=== PATIENT | female | born 1930 | race Caucasian/White ===

== ENCOUNTER 2016-09-29 04:39 | Inpatient (IN) | payer OTHER ==
[~2016-09-29] VITALS: Ht 167.6 cm; Wt 59.0 kg
--- NOTE | ~2016-09-29 | EKG ---
[address] [place] [address] ELECTROCARDIOGRAM REPORT Name: EVELYNPAT Room #: 545-P ADM IN .R.#: [id number] Admission: 09/29/16 Attend Phys: Tressa Mendoza MD Discharge: Date of : 28 Report #: [id number] THIS REPORT FOR: //name// [facility] ED Test Date: 2016-09-29 Test Time: 06:40:35 Pat Name: PAT RIVAS Department: Room: [facility] Gender: F Blueprint Tracer: CINDI : 1930 Requested By: Baudilio Arora Order Number: [id number] MD: Robert Ewing Measurements Intervals [place] Rate: 64 P: 50 MO: 163 QRS: 0 QRSD: 88 T: 2 QT: 409 QTc: 422 Interpretive Statements Sinus rhythm No significant abnormality No previous ECG available for comparison Electronically Signed On 09-30-2016 14:58:46 CDT by Robert Ewing [email or web address] <ELECTRONICALLY SIGNED> By: Robert Ewing MD, [facility] 09/30/16 1458 0640 0640 Robert Ewing MD, FACC /EPI
[~2016-09-29 04:39] MED LIST: B12INJ; CALCIUM 500 +1 EAC5; FOLIC ACID1 MG; HYDROCHLOROTHIA25 M2; ICAPS TABLET1 EACH; NORCO 5-325 TA1 EACH PO; TOPROL XL25 MG
[2016-09-29 04:40] VITALS: BP 177/77
[2016-09-29] MEDS ORDERED: ASPIR 8181 MG PO (05:40)
[2016-09-29 06:43] LABS: HEMATOCRIT 35.8 % (37.0-47.0); HEMOGLOBIN 12.1 gm/dL (12.0-15.0); MCH 32.2 pg (26.0-34.0); MCHC 33.8 g/dL (28.0-37.0); MCV 95.2 fL (80.0-100.0); RBC 3.76 mil/uL (4.20-5.00); WBC 10.3 thou/uL (4.0-11.0)
[2016-09-29 06:51] LABS: CALCIUM 9.6 mg/dL (8.5-10.1); CREATININE 0.6 mg/dL (0.6-1.0); POTASSIUM 3.5 mmol/L (3.5-5.1)
[2016-09-29 06:56] LABS: APTT 22.4 Seconds (24.5-32.8); PROTIME 10.4 Seconds (9.3-11.4)
[2016-09-29 07:20] VITALS: BP 166/72
[2016-09-29 08:39] VITALS: BP 143/54
[2016-09-29 16:24] VITALS: BP 159/55
[2016-09-29 22:45] VITALS: BP 160/60
[2016-09-30 06:54] LABS: CALCIUM 9.3 mg/dL (8.5-10.1); CREATININE 0.6 mg/dL (0.6-1.0); POTASSIUM 3.5 mmol/L (3.5-5.1)
[2016-09-30 07:45] VITALS: BP 154/67
[2016-09-30 15:44] VITALS: BP 148/56
[2016-09-30 20:00] VITALS: BP 150/55
[2016-10-01 04:00] VITALS: BP 163/67
[2016-10-01 08:00] VITALS: BP 154/56
[2016-10-01] MEDS ORDERED: DILAUDID 2 MG TA2 MG PO (08:45)
[2016-10-01 15:08] VITALS: BP 154/56
== END 2016-10-01 17:05 | disposition home health service (06) | DRG 544 ==
LOC: ER 04:39 → 5S 05:36 → EROBS 05:36 → 4E 07:41 → 5S 07:52
PROVIDERS: Emergency Medicine; Internal Medicine Endocrinology, Diabetes & Metabolism
DX: M80.021A Age-related osteoporosis with current pathological fracture, right humerus, initial encounter for fracture (principal); I10 Essential (primary) hypertension; S09.90XA Unspecified injury of head, initial encounter; S01.01XA Laceration without foreign body of scalp, initial encounter; W18.39XA Other fall on same level, initial encounter; Z79.899 Other long term (current) drug therapy; Y93.89 Activity, other specified; Y92.89 Other specified places as the place of occurrence of the external cause; Y99.8 Other external cause status
CPT/HCPCS: 10086

== ENCOUNTER → 2017-11-29 | Outpatient (CLI) | payer OTHER ==
[~2017-11-29] MED LIST changes: +ASPIR 8181 MG PO; +DILAUDID 2 MG TA2 MG PO
== END ==
LOC: RAD 14:12
DX: Z12.31 Encounter for screening mammogram for malignant neoplasm of breast (principal); M81.0 Age-related osteoporosis without current pathological fracture; M85.89 Other specified disorders of bone density and structure, multiple sites

== ENCOUNTER 2019-03-23 08:29 | Inpatient (IN) | payer OTHER ==
[2019-03-11 12:37] LABS: URINE BILIRUBIN NEGATIVE (Negative); URINE BLOOD TRACE (Negative); URINE CLARITY CLEAR; URINE COLOR YELLOW; URINE GLUCOSE-RANDOM* NEGATIVE (Negative); URINE KETONES NEGATIVE (Negative); URINE LEUKOCYTES-REFLEX TRACE (Negative); URINE NITRITE-REFLEX NEGATIVE (Negative); URINE PROTEIN (DIPSTICK) NEGATIVE (Negative); URINE SPECIFIC GRAVITY <= 1.005 (1.005-1.035); URINE UROBILINOGEN 0.2 E.U./dl (0.2-1.0)
[2019-03-11 12:38] LABS: HEMATOCRIT 40.4 % (37.0-47.0); HEMOGLOBIN 13.7 gm/dL (12.0-15.0); MCH 32.6 pg (26.0-34.0); MCHC 33.9 g/dL (28.0-37.0); MCV 96.2 fL (80.0-100.0); RBC 4.2 mil/uL (4.20-5.00); RDW 12.5 % (10.5-14.5); WBC 5.4 thou/uL (4.0-11.0)
[2019-03-11 12:45] LABS: ALBUMIN 4.5 g/dL (3.4-5.0); CALCIUM 9.9 mg/dL (8.5-10.1); CREATININE 0.6 mg/dL (0.6-1.0); POTASSIUM 4.2 mmol/L (3.5-5.1)
[2019-03-11 12:53] LABS: PROTIME 10.4 Seconds (9.3-11.4)
--- NOTE | 2019-03-12 12:51 | EKG ---
[address] [address] ELECTROCARDIOGRAM REPORT Name: PAT RIVAS Room #: PRE IN [facility]#: [id number] Admission: Attend Phys: Hernandez Alvarado MD Discharge: Date of : 28 Report #: [id number] THIS REPORT FOR: //name// [facility] Test Date: 2019-03-11 Test Time: 12:34:32 Pat Name: PAT RIVAS Department: Room: Gender: F Traffic Director: todd bunch : 1930 Requested By: Hernandez Alvarado Order Number: [id number] MD: Sav Gan Measurements Intervals [place] Rate: 66 P: 53 [place]: 161 QRS: 1 QRSD: 86 T: 4 QT: 390 QTc: 409 Interpretive Statements Sinus rhythm Compared to ECG 09/29/2016 06:40:35 No significant changes Electronically Signed On 03-12-2019 12:51:14 CDT by Sav Gan [email or web address] <ELECTRONICALLY SIGNED> By: Sav Gan MD 03/12/19 1251 1234 1234 Sav Gan MD /[place]
[~2019-03-23] VITALS: Ht 5.1 cm; Wt 55.3 kg
[~2019-03-23 08:29] MED LIST changes: +ALIGN4 MG PO; -B12INJ; +B12INJ PO; +CALCIUM 500 +1 EAC5 PO; +FOLIC ACID1 MG PO; +HYDROCHLOROTHIA25 M2 PO; +LIPITOR40 MG PO; +PROBIOTIC1 EAC1 PO; +TOPROL XL25 MG PO
[2019-03-23 09:15] VITALS: BP 173/63
[2019-03-23 14:45] VITALS: BP 126/86
--- NOTE | 2019-03-23 16:27 | NUR ---
PT ADMITTED RELATED TO LT TOTAL KNEE REPLACEMENT. CM REVIEWED CHART AND SPOKE WITH CARE TEAM. CM MET WITH PT AT BEDSIDE THIS DAY. PT IS A&O X4. CM ROLE INTRODCUED. PT INDICATED SHE LIVES IN AN APARTMENT WITH HER SPOUSE WHO HAS P[employer]INSON[employer] AND SHE IS HIS CAREGIVER. SHE INDICATED THERE ARE NO STEPS. PT INDICATED SHE HAD USED A CANE OCCASIONALLY RIGGER HELPER AND THAT SHE WILL NEED A FWW ISSUED UPON DC. CM NOTIFIED PP. PT INDICATED THAT SHE HAD SPOKEN WITH DR. BROOKS AND THAT SHE IS TO HAVE SOMEONE COME OUT FOR HOME HEALTH PT UPON DC THEN TRANSITION TO OP BUT SHE COULDN'T RECALL NAME OF PROVIDER. PT STATED SHE HOPED TO DC HOME TOMORROW. CM TO FOLLOW INDICATED WITH DC PLANNING.
[2019-03-23 16:55] VITALS: BP 146/70
[2019-03-23 20:25] VITALS: BP 155/72
[2019-03-24 04:05] VITALS: BP 122/61
--- NOTE | 2019-03-24 04:11 | NUR ---
PT DENIED PAIN SO FAR.PT CONT ON IVF AND IV ABX ORDERED.POLAR PACK FOR PAIN MGT,ICE CHANGED NEEDED.SCD AND [place] IN PLACE ON BLE.UP WITH ASSIST X1 TO BSC.SAKSHIG ON HER L KNEE C/D/I.PT ABLE TO MAKE HER NEEDS KNOWN.FALL PRECAUTIONS IN PLACE,CALL LIGHT WITHIN REACH.
[2019-03-24 06:34] LABS: HEMATOCRIT 32.9 % (37.0-47.0); HEMOGLOBIN 11.1 gm/dL (12.0-15.0); MCH 32.9 pg (26.0-34.0); MCHC 33.8 g/dL (28.0-37.0); MCV 97.2 fL (80.0-100.0); RBC 3.38 mil/uL (4.20-5.00); RDW 12.6 % (10.5-14.5); WBC 10.9 thou/uL (4.0-11.0)
[2019-03-24 07:30] VITALS: BP 115/57
[2019-03-24] MEDS ORDERED: NEURONTIN 300300 M1 PO (09:56)
[2019-03-24] MEDS ORDERED: ASPIR 8181 MG PO (09:56)
--- NOTE | 2019-03-24 11:36 | NUR ---
ASSUMED CARE OF PT AT 0700. PT IS ON 2.0 L OF O2. WALKED WITH PT TODAY AND WAS CLEARED FOR DISCHARGE. WEIGHT BEARING TOLERATED. PAIN IS WELL UNDER CONTROL AND PT WAS EDUCATED REGARDING MEDICATIONS POST DISCHARGE. CALL LIGHT WITHIN REACH. BED AND CHAIR ALARM IS ON. FALL PRECAUTIONS IN PLACE. BED IN LOWEST P2TPTAPE. WILL CONTINUE TO MONITOR THE PT.
--- NOTE | 2019-03-24 13:21 | NUR ---
Following for d/c planning needs. Faxed orders to [facility] and they will deliver walker today.
[2019-03-24 15:08] VITALS: BP 115/57
--- NOTE | 2019-03-30 09:43 | O ---
[facility] [place] [address] OPERATIVE REPORT Name: PAT RIVAS Room #: 439-P [facility] IN M.R.#: [id number] Admission: 03/23/19 Attend Phys: Hernandez Alvarado MD Discharge: 03/24/19 Date of : 28 Report #: [id number] THIS REPORT FOR: //name// CC: Hernandez Ybarrahanie Nelda DATE OF SERVICE: 03/23/2019 PREOPERATIVE DIAGNOSIS: Left knee osteoarthritis. POSTOPERATIVE DIAGNOSIS: Left knee osteoarthritis. PROCEDURE: Left total knee arthroplasty using Navio robotic assistance. SURGEON: Hernandez Alvarado MD. MERCHANDISER: Karen Casillas PA-C. INDICATIONS FOR MERCHANDISER: Throughout the case, extensive retraction and manipulation of the knee was required. This was afforded to me by my assistant director of nursing. ANESTHESIA: LMA with an adductor canal block. IMPLANTS: [employer] size 4 Legion cobalt chrome posterior stabilized femur, size 3 tibia, size 11 highly constrained polyethylene, and size 32 patella. TOURNIQUET TIME: 57 minutes. ESTIMATED BLOOD LOSS: 25 mL. COMPLICATIONS: None. SPECIMENS: None. CONDITION UPON LEAVING THE OPERATING ROOM: Stable. INDICATIONS FOR PROCEDURE: The patient is an 88-year-old female with severe left knee osteoarthritis. She has failed conservative measures for this and after discussion with her, she elected for left total knee arthroplasty. DESCRIPTION OF PROCEDURE: Risks, benefits, alternatives, complications were discussed in detail with the patient including, but not limited to risk of anesthesia, risk of damage to nerves, arteries, blood vessels, risk for infection, bleeding, risk for continued knee pain and need for reoperation. Informed consent was obtained from the patient. Left knee was appropriately [address] [address] OPERATIVE REPORT Name: PAT RIVAS [place] Room #: 439-P DIS IN M.R.#: [id number] Admission: 03/23/19 Attend Phys: Hernandez Alvarado MD Discharge: 03/24/19 Date of : 28 Report #: [id number] marked in the preoperative holding area. Adductor canal block was placed by Anesthesia. IV Ancef was given for preoperative antibiotics. She was brought to the operating room and placed in supine position on operating room table. LMA anesthesia was induced without complications. Tourniquet was placed on the left thigh. Left lower extremity was prepped and draped in normal sterile fashion. Timeout was performed properly identifying the patient and procedure as well as the instrumentation and implants. All in the operating room were in agreement. Left lower extremity was exsanguinated, tourniquet was inflated. Tourniquet time was 57 minutes. Standard midline approach to knee was made with 10 blade through the skin. Dissection was taken down sharply to the fascia. Deep flaps were developed medially and laterally. Fresh 10 blade was used to make a medial parapatellar arthrotomy and the knee was inspected. There was severe patellofemoral compartment osteoarthritis with subchondral sclerosis and erosion of the patella. There was mild medial and lateral compartment disease. It was decided to proceed with total knee arthroplasty. ACL and PCL were removed sharply. Reference pins were placed in the femur and the tibia and the knee was digitally mapped using the [employer] robotic system. We sized the size 4 femur with a size 3 tibia and a size 11 spacer. After acceptance of the intraoperative plan, the distal femoral cut was made with a Navio bur and the size 4-in-1 cutting block was placed. The anterior, posterior and chamfer cuts were made. After this, attention was turned to the tibia. Remainder of the menisci removed with Bovie cautery. The tibial resection guide was pinned in place and tibial resection was made. Flexion and extension gaps were then checked and found to have good balance in flexion and extension medially and laterally. In flexion laterally, there was laxity that was noted both on the preoperative plan. We decided we could make up for this with a highly constrained implant. Tibia was sized, found to be a size 3. Size 3 tibial trial was placed, pinned and punched. A size 4 femoral trial was placed and box cut was made. This was then trialed with a size 11 highly constrained polyethylene. Knee was taken through range of motion and found to have good stability, a millimeter to 2 of laxity both medially and laterally throughout range of motion of the knee. This was verified digitally as well as manually. A 9 mm was taken off the posterior surface of the patella and a size 32 patellar trial button was placed. Knee was taken through range of motion, found to be stable, and found to have good patellar tracking. After this, trial components were removed. Bony ends were thoroughly irrigated with normal saline. Final size 3 tibia, size 4 cobalt chrome Legion posterior stabilized femur, and a size 32 patella were cemented in place using standard cementation techniques. While the cement cured, a periarticular injection consisting of morphine, ropivacaine, epinephrine and Toradol was placed around the knee joint capsule. After the cement cured, the tourniquet was deflated. Hemostasis was obtained with Bovie cautery. Final size 11 highly constrained polyethylene was placed. A gram of vancomycin was placed deep in the joint. Fascia was closed with 0 Vicryl and skin was closed with 2-0 Vicryl, 3-0 Monocryl. Dermabond and a BETINA dressing [address] [address] OPERATIVE REPORT Name: PAT RIVAS Room #: 439-P [facility] IN M.R.#: [id number] Admission: 03/23/19 Attend Phys: Hernandez Alvarado MD Discharge: 03/24/19 Date of : 28 Report #: [id number] was applied. The patient tolerated this procedure well and went to the recovery room under care of anesthesia postoperatively. <ELECTRONICALLY SIGNED> By: Hernandez Alvarado MD 03/30/19 0943 1259 1317 Hernandez Alvarado MD /nt
== END 2019-03-24 16:58 | disposition home or self-care (01) | DRG 470 ==
LOC: 4S 08:29 → TBA 08:29 → PRE 10:46 → 4E 14:52 → 4S 15:16 → ENTRNSPT 03-24 16:29 → 4S 03-24 16:58
PROVIDERS: ADMIT Orthopaedic Surgery
PROC: 0SRD0J9 Replacement of Left Knee Joint with Synthetic Substitute, Cemented, Open Approach (ICD-10-PCS; principal; 2019-03-23)
PROC: 8E0Y0CZ Robotic Assisted Procedure of Lower Extremity, Open Approach (ICD-10-PCS; 2019-03-23)
DX: M17.12 Unilateral primary osteoarthritis, left knee (principal); M81.0 Age-related osteoporosis without current pathological fracture; I10 Essential (primary) hypertension; E78.5 Hyperlipidemia, unspecified; Z90.710 Acquired absence of both cervix and uterus; Z98.42 Cataract extraction status, left eye; Z82.61 Family history of arthritis; Z79.899 Other long term (current) drug therapy; Z98.41 Cataract extraction status, right eye
CPT/HCPCS: 10102; 50010; 50101; 50415; 50954; 51130; 51225; 53000; 53078; 53364; 54118; 56527; 56528; 57095; 57103; 57110; 57127; 57179; 62110; 62900; 70005